=== PATIENT | female | born 1990 | race Caucasian/White ===

== ENCOUNTER 2024-04-14 13:12 | Inpatient (IN) | payer OTHER, SELFPAY ==
[2024-04-14 13:33] VITALS: BP 185/102; BMI 28.5
[2024-04-14] MEDS: LR 1000 IV ×2 (13:45→18:51)
[2024-04-14 14:31] LABS: % Basophils 0.4 % (0-2); % Eosinophils 0.1 % (0-6); % Immature Granulocytes 0.6 % (0-0.5); % Lymphocytes 20.6 % (20.5-51.1); % Monocytes 4.8 % (1.7-9.3); % Neutrophils 73.5 % (42.2-75.2); Absolute Basophils 0.1 10^3/uL (0-0.2); Absolute Immature Granulocytes 0.1 10^3/uL (0-0.05); Absolute Lymphocytes 2.4 10^3/uL (1.2-3.4); Absolute Monocytes 0.6 10^3/uL (0.1-0.6); Absolute Neutrophils 8.4 10^3/uL (1.4-6.5); Hematocrit 38.9 % (37.0-47.0); Hemoglobin 13.6 g/dL (12.0-16.0); Mean Corpuscular Hgb 29.6 pg (27.0-31.0); Mean Corpuscular Volume 84.6 fL (81.0-99.0); Mean Platelet Volume 11.8 fL (7.4-10.4); Nucleated Red Blood Cells % 0 %; Platelet Count 287 10^3/uL (130-400); Red Cell Dist. Width 13.7 % (11.5-14.5); White Blood Cell Count 11.4 10^3/uL (4.8-10.8)
[2024-04-14 14:39] LABS: Amphetamines Negative (Negative); Barbiturates Negative (Negative); Benzodiazepines Negative (Negative); Buprenorphine Negative (Negative); Cocaine Negative (Negative); Marijuana Negative (Negative); Methadone Negative (Negative); Methamphetamines Negative (Negative); Opiates Negative (Negative); Phencyclidine Negative (Negative); Tricyclic Antidepressants Negative (Negative)
[2024-04-14 14:55] LABS: ALT (SGPT) 17 U/L (0-35); AST (SGOT) 25 U/L (14-36); Albumin 3.7 g/dl (3.5-5.0); Alkaline Phosphatase 264 U/L (38-126); Blood Urea Nitrogen 9 mg/dl (7-17); Carbon Dioxide 23 mmol/L (22-30); Chloride 103 mmol/L (98-107); Estimated Creatinine Clearance > 125 ml/min; Glucose 120 mg/dl (70-99); Potassium 4.3 mmol/L (3.5-5.1); Sodium 134 mmol/L (135-145); Total Bilirubin 0.4 mg/dl (0.2-1.3); Total Protein 6.5 g/dl (6.3-8.2); eGFR > 60.00
[2024-04-14] MEDS: TRANDATE 20 MG IV ×2 (15:22→20:37)
[2024-04-14 16:44] LABS: Protein/creatinine Ratio 0.2; Urine Protein 8 mg/dl
[2024-04-14] MEDS: SUBLIMAZE 100 MCG EPIDURAL (18:31)
[2024-04-14] MEDS: FENTANYL/BUPIVACAINE 100 EPIDURAL (18:31)
[2024-04-14 18:57] LABS: Hepatitis B Surface Antigen Negative (Negative)
[2024-04-14 19:14] LABS: Hepatitis C Antibody Negative (Negative)
[2024-04-14 20:10] LABS: Rubella Negative
[2024-04-14] MEDS: TRANDATE 200 MG PO (21:56)
[2024-04-15 05:31] LABS: Hematocrit 34.5 % (37.0-47.0); Hemoglobin 11.9 g/dL (12.0-16.0)
[2024-04-15] MEDS: MOTRIN 600 MG PO ×3 (05:56→19:50)
[2024-04-15] MEDS: PRENATAL PLUS 1 TABLET PO (07:38)
[2024-04-15] MEDS: TRANDATE 200 MG PO ×2 (07:38→19:50)
--- NOTE | 2024-04-15 12:01 | CM ---
Met with new parents Troy
Parents report they live at listed address. They are . Their 2 yo daughter Malissa also lives in home
Mom reports her has been named Ashok
Mom plans to breast feed and has a breast pump. Parents report they have supplies for their including a crib and car seat.
Plan for pediatric care is with Dr Matute, a family practitioner, in [facility]. They report they have scheduled an appointment for Thursday for their son. They prefer to have infant receive his vaccines at his PCP. Importance of follow up care
for both mom and baby stressed.
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 She was unhappy with her care with her pipeline superintendent division. When she began labor she came to [place]. She understands care is important.
manager licensing will be available for d/c needs
[2024-04-15 13:00] LABS: HIV Combo Negative (Negative)
[2024-04-15 13:30] LABS: Syphilis/T. pallidum Ab Reflex Negative (Negative)
[2024-04-16] MEDS: MOTRIN 600 MG PO (06:15)
[2024-04-16] MEDS: PRENATAL PLUS 1 TABLET PO (07:57)
[2024-04-16] MEDS: TRANDATE 200 MG PO (07:57)
== END 2024-04-16 11:53 | disposition home or self-care (01) | DRG 807 ==
LOC: LDRP 13:12
PROVIDERS: ADMITTING PHYSICIAN Obstetrics & Gynecology; FAMILY PHYSICIAN Family Medicine
PROC: 10E0XZZ Delivery of Products of Conception, External Approach (ICD-10-PCS; 2024-04-14)
DX: O42.02 Full-term premature rupture of membranes, onset of labor within 24 hours of rupture (principal); Z37.0 Single live birth; Z3A.41 41 weeks gestation of pregnancy; O48.0 Post-term pregnancy; F43.10 Post-traumatic stress disorder, unspecified; X58.XXXS Exposure to other specified factors, sequela; O14.14 Severe pre-eclampsia complicating childbirth; O36.63X0 Maternal care for excessive fetal growth, third trimester, not applicable or unspecified; O66.0 Obstructed labor due to shoulder dystocia
CPT/HCPCS: 88307; 76805; 76816; 80053; 80306; 82570; 84156; 85014; 85018; 85025; 86762; 86780; 86803; 86850; 86900; 86901; 87340; 87389; 87491; 87591